=== PATIENT | female | born 1950 | race Caucasian/White ===

== ENCOUNTER 2019-05-26 16:28 | Inpatient (IN) | payer MEDICARE, MEDICAID, SELFPAY ==
[2019-05-26] VITALS (26 sets, daily range): BP systolic 95–212; BP diastolic 52–197; PULSE 72–87; RESP 0–32; TEMP 36.8; O2SAT 50–100; BMI 61.1
--- NOTE | ~2019-05-26 | XR_ITS ---
EXAMINATION: XR chest 1V portable DATE: 05/27/2019 08:17 INDICATION: Acute on chronic hypercapnic respiratory failure. TECHNIQUE: frontal view of the chest was obtained. COMPARISON: Chest radiograph dated 05/26/2019 FINDINGS: Increasing opacities in the right infrahilar region as well as the left lower lung zone with new blun ting at the left costophrenic angle. No pneumothorax. Calcified nodule in the left lung consistent wi th old granulomatous disease. Radio megaly. Enlargement of the central pulmonary arteries consistent with pulmonary arterial hypertension. Dual lead pacemaker seen with leads projecting over the expecte d locations of the right atrium and right ventricle. IMPRESSION: 1. Increasing opacities in the right infrahilar region and left lower lung zone which could represent pulmonary edema, atelectasis, pneumonia or some combination of. 2. Small left pleural effusion. 3. Cardiomegaly and enlargement of the central pulmonary arteries which can be seen with pulmonary ar terial hypertension. Reviewed, dictated and finalized at location A. OR ACCOUNTING SPECIALIST IMPRESSION: 1. Increasing opacities in the right infrahilar region and left lower lung zone which could represent pulmonary edema, atelectasis, pneumonia or some combinat ion of. 2. Small left pleural effusion. 3. Cardiomegaly and enlargement of the central pulmonary arteries which can be seen with pulmonary arterial hypertension.
--- NOTE | ~2019-05-26 | XR_ITS ---
EXAMINATION: XR chest 1V portable EXAM DATE: 05/26/2019 18:27 INDICATION: Shortness of breath. TECHNIQUE: Portable AP frontal chest x-ray was obtained. Comparison is made to prior examination from 05/07/2019. FINDINGS: Again there is cardiomegaly and pulmonary vascular congestion. There is a dual lead pacemak er/AICD seen with leads projecting over the expected locations of the right atrial appendage and righ t ventricle. Several granulomas. No confluent consolidation, pneumothorax or pleural effusion suspect ed. There is aortic arterial sclerosis. There are bony degenerative changes. IMPRESSION: Cardiomegaly, congestion unchanged. Reviewed, dictated and finalized at location A. SSMENT NURSE PRACTITIONER
--- NOTE | ~2019-05-26 | US_ITS ---
EXAMINATION: US renal BI DATE: 05/27/2019 08:43 INDICATION: Acute on chronic renal failure TECHNIQUE: Multiple grayscale and Doppler ultrasound images of the kidneys were obtained. COMPARISON: None. FINDINGS: The examination is limited by the patient's body habitus. The right kidney measures 9.0 x 5.1 x 5.4 cm. A 1.5 cm hypoechoic lesion projects from the lower pole of the kidney which does not d emonstrate internal vascularity. The left kidney measures 9.4 x 5.7 x 5.2 cm. The kidneys demonstrate normal parenchymal echogenicity. There is no hydronephrosis. The bladder is decompressed by [place] ca theter. IMPRESSION: 1. Grossly no acute abnormality of the kidneys, however examination is significantly limited. 2. Hypoechoic, exophytic lesion of the right kidney lower pole, likely a cyst. Reviewed, dictated and finalized at location A. CH FOLDER IMPRESSION: 1. Grossly no acute abnormality of the kidneys, however examination is signifi cantly limited. 2. Hypoechoic, exophytic lesion of the right kidney lower pole, likely a cyst.
--- NOTE | 2019-05-26 16:38 | ECG_ITS ---
Measurements Intervals [place] Rate: 80 P: -58 KS: 317 QRS: -32 QRSD: 170 T: 159 QT: 466 QTc: 538 Interpretive Statements ELECTRONIC ATRIAL PACEMAKER ELECTRONIC VENTRICULAR PACEMAKER BASELINE ARTIFACT- I, II, III, AVR, AVL, AVF, V1-V6 NO FURTHER INTERPRETATION IS POSSIBLE ATYPICAL ECG Electronically Signed On 05-26-2019 20:21:41 MICROELECTRONICS ASSEMBLER by Vicente Kendall D.O.
--- NOTE | 2019-05-26 16:45 | PC.NURSE ---
PT NOTED TO HAVE RA SATURATION IN THE 50'S, PHYSICIANS DESK NOTIFIED AND DANN RUIZ AT BEDSIDE, RN INFORMED PA THAT PT HAS SIG HX OF COPD, PA ORDER TO PLACE PT ON NON-REBREATHER AT 15 L, AND STATES SHE WILL ORDER A STAT BREATHING TREATMENT. ED RESPIRATORY INFORMED. PT STILL DENIES BEING SOB, O2 SATURATION COMING UP ON NON-REBREATHER AT 99%.
[2019-05-26] MEDS: ALBUTEROL SULFATE NEB 2.5 MG/0.5 ML INH 15 MG INHALATION (17:19)
[2019-05-26] MEDS: IPRATROPIUM BR 0.02% INH SOLN 0.5 MG/2.5 ML VIAL 1.5 MG INHALATION (17:19)
--- NOTE | 2019-05-26 17:19 | ED.WEAKNESS ---
HPI - Weakness General Chief complaint: Weakness Stated complaint: weakness Time Seen by Provider: 05/26/19 16:51 Source: patient Mode of arrival: EMS Limitations: dementia History of Present Illness HPI Narrative: This is a 68 year old female that presents to the ER for weakness x 2 days. Per patient's family member she has been more weak over the last couple days. Reports acute worsening this morning. Reports she was unable to walk today, which prompted family member to call an ambulance. Reports she lives at home with her sister. Reports she has a history of COPD, CHF and CKD. Patient currently has no other localizing symptoms. Denies fever, chest pain, shortness of breath, abdominal pain, vomiting, or dysuria. Related Data Home Medications Medication Instructions Recorded Confirmed apixaban 5 mg tablet 5 mg PO BID 03/30/19 05/07/19 cholecalciferol (vitamin D3) 2,000 2,000 unit PO DAILY 03/30/19 05/07/19 unit tablet ferrous sulfate 142 mg (45 mg 142 mg PO BID 03/30/19 05/07/19 iron) tablet,extended release memantine 10 mg tablet 10 mg PO BID 03/30/19 05/07/19 ranitidine HCl 150 mg tablet 150 mg PO BID tablet 03/30/19 05/07/19 sotalol 80 mg tablet 80 mg PO BID tablet 03/30/19 05/07/19 acetaminophen 650 mg PO Q6H PRN 05/07/19 05/07/19 Allergies Allergy/AdvReac Type Severity Reaction Status Date / Time No Known Allergies Allergy Unverified 03/30/19 14:33 Review of Systems Review of Systems: Narrative: Limited due to history of dementia: CONSTITUTIONAL: Denies fever ENT: Denies rhinorrhea, congestion CARDIOVASCULAR: Denies chest pain RESPIRATORY: Denies cough or dyspnea. GASTROINTESTINAL: Denies abdominal pain, vomiting GENITOURINARY: Denies dysuria NEUROLOGIC: Reports weakness All systems reviewed & are unremarkable except as noted in HPI and below PMFSH Past Medical History Medical History (Updated 05/26/19 @ 21:01 by Nikkie Rivera PA-C) Atrial fibrillation Cardiac arrhythmia CHF (congestive heart failure) COPD (chronic obstructive pulmonary disease) Dementia Gallbladder disorder GERD (gastroesophageal reflux disease) Heart disease Hernia Kidney disease Low serum vitamin D Pacemaker Stasis dermatitis Venous insufficiency Surgical History Surgical History History of appendectomy History of cholecystectomy History of hernia repair x 2 Family History Family History (Updated 05/07/19 @ 21:46 by Mona Doshi NP) Mother Pancreatic cancer Father Cerebrovascular accident Acute myocardial infarction Malignant neoplasm of prostate Grandparent No problems noted. Grandparent No problems noted. Sibling Diabetes mellitus Social History Social History (Updated 05/07/19 @ 21:47 by Mona Doshi NP) Social History: Patient is currently from her . her sister destinee is her POA. she wants to be a full code. She does have 1 son and 1 daughter. She quit smoking 30 years ago having smoked 2 packs per day from age 12 until her 40s. No alcohol use. Smoking packs per day: 2 Smoking cigarettes per day: 40.0 Years smoked: 30 Smoking pack-years: 60.00 Smoking status: Former smoker Tobacco type: cigarettes Alcohol intake: never Substance use: never Substance use type: does not use Additional living arrangements comments: Her sister destinee Additional occupation/education comments: The patient was fired from her job but was too sick to return. Gender identity (if verbalized by the patient): Female Spiritual care concerns: No Agree to blood products: Yes Exam Narrative: Exam Narrative: GENERAL: Elderly, obese, and in no acute distress. HEAD: Normocephalic, atraumatic. EYES: PERRLA and EOMI. ENT: Nares clear, no rhinorrhea or epistaxis. Mucous membranes moist. Oropharynx without tonsillar hypertrophy exudate or other le
[2019-05-26 17:26] LABS: Base Excess ABG 21.8 mEq/l (+/-2.0); Carboxyhemoglobin 0.9 % THb (0-2.0); Fractional Inspired Oxygen 100 %; Methemoglobin ABG 0.3 %THb (0-1.5); Oxygen Content ABG 17.7 %vol (16.0-22.0); Oxygen Saturation ABG 99.6 % (95.0-100.0); PO2 ABG 354.2 mmHg (80.0-100.0); PO2 FiO2 Ratio Arterial Blood 3.54 %; Reduced Hemoglobin 0.8 %THb (0-5.0); Total Hemoglobin 12.2 g/dL (12.0-18.0)
[2019-05-26 17:29] LABS: Device NON-REBREATHER MASK; PCO2 ABG 130.8 mmHg (35.0-45.0); Site Drawn LEFT BRACHIAL; pH ABG 7.242 (7.350-7.450)
[2019-05-26 17:36] LABS: Basophils Percent Auto 0.3 % (0.2-1.2); Eosinophils Absolute Auto 0.1 K/mm3 (0-0.3); Eosinophils Percent Auto 1.2 % (0-4.4); Hematocrit 38.3 % (37.0-47.0); Hemoglobin 11.4 g/dL (12.0-15.0); Immature Granulocyte Absolute 0.01 K/mm3 (0.00-0.031); Immature Granulocyte Percent A 0.2 % (0-0.5); Lymphocytes Percent Auto 11.8 % (18.3-44.2); Mean Corpuscular HGB Conc 29.8 g/dl (32-36); Mean Corpuscular Hemoglobin 29.7 pg (26-34); Mean Corpuscular Volume 99.7 fl (80-100); Monocytes Absolute Auto 0.5 K/mm3 (0.1-0.6); Monocytes Percent Auto 9.1 % (2.6-8.5); Neutrophils Absolute Auto 4.6 K/mm3 (1.3-6.7); Neutrophils Percent Auto 77.4 % (45.5-73.1); Platelet Count Result 169 k/mm3 (150-375); Red Blood Count 3.84 M/mm3 (4.2-5.4); White Blood Count 5.9 K/mm3 (4.5-10.0)
[2019-05-26 17:40] LABS: Add Urine Microscopic? YES; Appearance Urine Cloudy (Clear); Bacteria Urine Trace /hpf; Bilirubin Urine Negative (Negative); Blood Urine 1+ (Negative); Color Urine Yellow (Yellow); Glucose Urine UA 1+ mg/dL (Negative); Hyaline Casts Urine 30-49 /lpf; Ketones Urine Negative (Negative); Leukocyte Esterase Ur Negative LEU/UL (Negative); Mucus Urine Rare /lpf; Nitrate Urine Negative (Negative); Protein Urine 1+ mg/dL (Negative); RBC Urine 0-2 /hpf (0-2); Specific Grav Ur 1.014 (1.001-1.035); Squamous Epithelial Cell Urine Few /hpf (Few); Urobilinogen Urine Negative mg/dL (<2.0)
[2019-05-26 17:46] LABS: Prothrombin Time 12.8 Seconds (11.1-14.7)
[2019-05-26 17:47] LABS: Partial Thromboplastin Time 27.5 SECONDS (22.3-36.8); Platelet Estimate Adequate (Adequate)
[2019-05-26 17:48] LABS: Hypochromasia 1+ (NORMAL); Stomatocytes 1+ (NORMAL)
[2019-05-26 17:51] LABS: Lactic Acid Reflex 0.7 mmol/L (0.7-2.1)
[2019-05-26 17:54] LABS: Alanine Aminotransferase 26 U/L (4-35); Albumin Level 3.7 g/dL (3.5-5.1); Alkaline Phosphatase 73 U/L (38-126); Aspartate Amino Transferase 33 U/L (14-36); Bilirubin,Total 0.5 mg/dL (0.2-1.3); Blood Urea Nitrogen 59 mg/dL (7-17); Calcium 8.5 mg/dL (8.4-10.2); Carbon Dioxide > 40 mmol/L (22-30); Chloride 76 mmol/L (98-107); Estimated CRCL calculation 16 ml/min; Estimated Glomerular Filt Rate 11; Glucose 98 mg/dL (65-105); Potassium 3.9 mmol/L (3.4-5.0); Sodium 132 mmol/L (137-145)
[2019-05-26 17:57] LABS: CRP 0.6 mg/dL (<1.0)
[2019-05-26] MEDS: SODIUM CHLORIDE 0.9% IV 500 ML 999 ML IV CONT (17:58)
[2019-05-26] MEDS: methylPREDNISolone SOD SUCC 125 MG VIAL IV PUSH (17:58)
[2019-05-26 18:01] LABS: NT Pro B Type Natriuretic Pept 6390 PG/ML (5-100)
[2019-05-26 18:09] LABS: Troponin I 0.046 ng/mL (0.000-0.034)
--- NOTE | 2019-05-26 20:06 | PC.NURSE ---
talked with jaime Pal and gave update.
--- NOTE | 2019-05-26 20:27 | PC.NURSE ---
Obtained manual BP. AMANDA 98/52. PA notified
[2019-05-26] MEDS: SODIUM CHLORIDE 0.9% IV 500 ML IV CONT (20:37)
--- NOTE | 2019-05-26 20:37 | PC.NURSE ---
report has been called awaiting respiratory for transport
[2019-05-26 20:49] LABS: Troponin I 0.047 ng/mL (0.000-0.034)
--- NOTE | 2019-05-26 21:26 | ADMGEN ---
This patient, Janki Callejas, was admitted to Intensive Care Unit-6. Patient/family oriented to hospital policies and general routines including ID bracelet, bed and alarms, visiting hours, pain management, procedures, bathroom and other care routines, personal items, smoking policy, room service/diet, and visiting hours. Valuables list has been completed. Information on how to activate the Rapid Response Team has been discussed. Patient/Family are encouraged to report perceived risks to care and to ask questions if they do not understand what they are told or what they should do. This patient, Janki Callejas, was admitted to Intensive Care Unit-6. Patient/family oriented to hospital policies and general routines including ID bracelet, bed and alarms, visiting hours, pain management, procedures, bathroom and other care routines, personal items, smoking policy, room service/diet, and visiting hours. Valuables list has been completed. Information on how to activate the Rapid Response Team has been discussed. Patient/Family are encouraged to report perceived risks to care and to ask questions if they do not understand what they are told or what the Pt on continous bipaa
--- NOTE | 2019-05-26 22:12 | PM.IMHP ---
H&P: HPI History of Present Illness Chief complaint: acute respiratory failure Narrative: Janki Callejas is a 68 year old female who lives with her sister Caleb who has her durable power title attorney. This patient is well-known to me as I admitted her earlier this month the patient was admitted here on 05/07/2019 for exacerbation of CHF and COPD. The patient had been on the BiPAP at that time as well. She was a full code at that time but then decided to become a modified code with no intubation. The patient was discharged on 05/11/2019 patient had acute respiratory failure at that time. She is on home oxygen but does not wear it on a regular basis. Patient had been tapered off of steroids. Patient has chronic renal failure stage 4. Today the patient was very the patient was very lethargic and weak. Her sister's attempted to get her up out of bed and they were unable to get her out of bed. She typically uses a walker and gets up and moves around. Today she became even more confused although she has a history dementia. Patient was given Solu-Medrol and IV fluids. IV bolus was stopped when the patient came to ICU. At 1 time her lowest blood pressure was 95/54 and that is why she got the bolus. Also her creatinine went up to 4.0 with a baseline of around 1.9 to 2.0. Nephrology was consulted. Service Station Operator was consulted. Patient was placed on a BiPAP. Settings are now 20/6. Her last blood gases pH 7.242 and pCO2 was 130.8 with PO2 of 354.2. Patient was admitted to the intensive care unit with acute on chronic respiratory failure with hypoxia and hypercapnia. Exacerbation of COPD. Date of service 05/26/2019. Review of Systems Review of Systems: Narrative: The patient woke up and started talking while I was doing this dictation. All systems reviewed & are unremarkable except as noted in HPI and below ROS unobtainable: unobtainable due to mental status and other (Patient is currently on the BiPAP) Constitutional: Constitutional: Reports as per HPI and Reports no additional constitutional complaints Eyes: Eyes: Reports as per HPI and Reports no additional eye complaints ENT: Reports system reviewed and no additional complaints, except as documented and Reports Normal hearing present Cardiovascular: Cardiovascular: Reports no additional cardiovascular complaints Respiratory: Respiratory: Reports no additional respiratory complaints and Reports no additional respiratory complaints Gastrointestinal: Gastrointestinal: Reports as per HPI and Reports no additional gastrointestinal complaints Musculoskeletal: Musculoskeletal: Reports no additional musculoskeletal complaints Integumentary/Breasts: Skin/Breast: Reports system reviewed and no additional complaints, except as docu and Reports as per HPI Neurologic: Reports system reviewed and no additional complaints, except as documented, Reports as per HPI and Reports Normal hearing present Psychiatric: Psychiatric: Reports no additional psychiatric complaints and Reports as per HPI Endocrine: Endocrine: Reports no additional endocrine complaints Hematologic/Lymphatic: Hematologic/Lymphatic: Reports no additional hematologic/lymphatic complaints Allergic/Immunologic: Allergic/Immunologic: Reports no additional allergic/immunologic complaints [facility] Past Medical History Medical History Atrial fibrillation Cardiac arrhythmia CHF (congestive heart failure) COPD (chronic obstructive pulmonary disease) Dementia Gallbladder disorder GERD (gastroesophageal reflux disease) Heart disease Hernia Kidney disease Low serum vitamin D Pacemaker Stasis dermatitis Venous insufficiency Surgical History Surgical History History of appendectomy History of cholecystectomy History of hernia repair x 2 Family History Family History Mother
[2019-05-26 22:17] LABS: Alveolar/Arterial O2 Gradient 92.7 mmHg; Base Excess ABG 13.4 mEq/l (+/-2.0); Fractional Inspired Oxygen 40 %; HCO3 ABG 44.4 mEq/l (22.0-26.0); Oxygen Content ABG 16.4 %vol (16.0-22.0); Oxyhemoglobin 93.8 % THb (90.0-100.0); PO2 ABG 78.9 mmHg (80.0-100.0); PO2 FiO2 Ratio Arterial Blood 1.97 %; Total Hemoglobin 12.4 g/dL (12.0-18.0)
[2019-05-26 22:20] LABS: Device NON-INVASIVE VENT; Modified Allen's Test Unable to perform; PCO2 ABG 98.8 mmHg (35.0-45.0); Site Drawn LEFT RADIAL
[2019-05-26 22:21] LABS: Non-Invasive Expiratory Pressure 6 CMH2O; Non-Invasive Inspiratory Pressure 20 CMH2O; Non-Invasive Vent Rate 20 /MIN
[2019-05-26] MEDS: SODIUM CHLORIDE 0.9% IV 1,000 ML 100 ML IV CONT (23:42)
[2019-05-26] MEDS: methylPREDNISolone SOD SUCC 125 MG VIAL 80 MG IV PUSH (23:43)
[2019-05-26] MEDS: MEMANTINE 10 MG TABLET PO (23:43)
[2019-05-26] MEDS: levETIRAcetam 250 MG TABLET PO (23:43)
[2019-05-26] MEDS: APIXABAN 5 MG TABLET PO (23:43)
[2019-05-27] VITALS (22 sets, daily range): BP systolic 96–156; BP diastolic 51–99; PULSE 18–87; RESP 15–25; TEMP 36.1–37.1; O2SAT 94–98
--- NOTE | 2019-05-27 | ECHO_ITS ---
Patient Info Name: Janki Callejas Age: 68 years : 1950 Gender: Female Ht: 60 in Wt: 317 lbs BSA: 2.57 m2 HR: 80 bpm BP: 132 / 92 mmHg Heart Rhythm: Paced Technical Quality: Fair, Other Exam Date: 05/27/2019 1:48 PM Exam Location: [facility] Pulmonary Patient Status: Inpatient Admit Date: 05/26/2019 Staff Ordering Physician: Rubi Cameron MD Extrusion Machine Operator: Loraine Callahan RDCS Attending Provider: Austin Camp MD Exam Type: CA echo dop color flow w con Study Info Indications - hx/o chf eval cardiac function Complete two-dimensional, color flow and Doppler transthoracic echocardiogram is performed with contrast to opacify the left ventricle and to improve the deliniation of the left ventricle endocardial borders. Contrast/Agitated Saline Contrast/Ag. Saline: Definity Amount: 1.00 ml Administered By: Roopa Boyer RN Existing IV Access: Yes IV Access Condition: patent with no signs of infiltration Summary 1. Left ventricular systolic function is normal, estimated at 65-70%. 2. There is mildly increased left ventricular wall thickness. 3. The left ventricular diastolic function is abnormal. 4. Linear artifact in right ventricle suggestive of catheter(s), pacemaker lead(s), or ICD lead(s). 5. Left atrial chamber dimension is mildly enlarged. 6. Right atrial chamber dimension is mildly enlarged. 7. There is no aortic valve stenosis. 8. There is mild mitral valve regurgitation. 9. Mild mitral annular calcification. 10. There is mild tricuspid valve regurgitation. 11. Mild pulmonary hypertension, estimated pulmonary arterial systolic pressure is 38 mmHg. 12. Normal inferior vena cava with <50% collapse upon inspiration consistent with elevated right atrial pressure, 10 mmHg. 13. Paradoxical septal wall motion abnormality secondary to RV paced rhythm. Left Ventricle Left ventricular chamber dimension is normal. Left ventricular systolic function is normal, estimated at 65-70%. There is mildly increased left ventricular wall thickness. The left ventricular diastolic function is abnormal. Paradoxical septal wall motion abnormality secondary to RV paced rhythm. Right Ventricle Right ventricular chamber dimension is normal. Right ventricular systolic function is normal. Linear artifact in right ventricle suggestive of catheter(s), pacemaker lead(s), or ICD lead(s). Left Atria Left atrial chamber dimension is mildly enlarged. Right Atria Right atrial chamber dimension is mildly enlarged. Linear artifact in the right atrium suggestive of catheter(s), pacemaker lead(s), or ICD lead(s). Aortic Valve The aortic valve is trileaflet. There is mild aortic valve sclerosis. There is no aortic valve stenosis. There is no aortic valve regurgitation. Pulmonic Valve The pulmonic valve is not well visualized. Mitral Valve The mitral valve has normal leaflets. There is mild mitral valve regurgitation. Mild mitral annular calcification. Tricuspid Valve The tricuspid valve leaflets are normal. There is mild tricuspid valve regurgitation. Mild pulmonary hypertension, estimated pulmonary arterial systolic pressure is 38 mmHg. Pericardium/Pleural The pericardium appears normal. There is trivial pericardial effusion. Inferior Vena Cava Normal inferior vena cava with <50% collapse upon inspiration consistent with elevated right atrial pressure, 10 mmHg. Aorta The aortic root size a
[2019-05-27] MEDS: ALBUTEROL SULFATE NEB 2.5 MG/0.5 ML INH INHALATION (02:29)
[2019-05-27] MEDS: IPRATROPIUM BR 0.02% INH SOLN 0.5 MG/2.5 ML VIAL INHALATION ×3 (02:29→14:35)
[2019-05-27 04:42] LABS: Hematocrit 35.2 % (37.0-47.0); Hemoglobin 10.8 g/dL (12.0-15.0); Immature Granulocyte Absolute 0.01 K/mm3 (0.00-0.031); Immature Granulocyte Percent A 0.3 % (0-0.5); Lymphocytes Absolute Auto 0.33 K/mm3 (0.9-3.2); Lymphocytes Percent Auto 8.6 % (18.3-44.2); Mean Corpuscular HGB Conc 30.7 g/dl (32-36); Mean Corpuscular Hemoglobin 29.6 pg (26-34); Mean Corpuscular Volume 96.4 fl (80-100); Mean Platelet Volume 8.9 fl (7.4-10.4); Monocytes Absolute Auto 0.1 K/mm3 (0.1-0.6); Monocytes Percent Auto 1.6 % (2.6-8.5); Neutrophils Absolute Auto 3.4 K/mm3 (1.3-6.7); Neutrophils Percent Auto 89.5 % (45.5-73.1); Platelet Count Result 144 k/mm3 (150-375); Red Blood Count 3.65 M/mm3 (4.2-5.4); Red Cell Distribution Width 14.4 % (11.5-14.5); White Blood Count 3.8 K/mm3 (4.5-10.0)
[2019-05-27 04:59] LABS: Alveolar/Arterial O2 Gradient 130.6 mmHg; Base Excess ABG 10.3 mEq/l (+/-2.0); Carboxyhemoglobin 0.4 % THb (0-2.0); Fractional Inspired Oxygen 40 %; HCO3 ABG 38.2 mEq/l (22.0-26.0); Methemoglobin ABG 0.3 %THb (0-1.5); Oxygen Content ABG 15.7 %vol (16.0-22.0); Oxygen Saturation ABG 93.8 % (95.0-100.0); Oxyhemoglobin 93.7 % THb (90.0-100.0); PO2 ABG 74.4 mmHg (80.0-100.0); PO2 FiO2 Ratio Arterial Blood 1.86 %; Reduced Hemoglobin 5.6 %THb (0-5.0); Total Hemoglobin 11.9 g/dL (12.0-18.0); pH ABG 7.357 (7.350-7.450)
[2019-05-27 05:00] LABS: Alanine Aminotransferase 24 U/L (4-35); Albumin Level 3.3 g/dL (3.5-5.1); Alkaline Phosphatase 50 U/L (38-126); Aspartate Amino Transferase 33 U/L (14-36); Bilirubin,Total 0.5 mg/dL (0.2-1.3); Blood Urea Nitrogen 62 mg/dL (7-17); Carbon Dioxide > 40 mmol/L (22-30); Chloride 80 mmol/L (98-107); Estimated CRCL calculation 18 ml/min; Estimated Glomerular Filt Rate 13; Glucose 122 mg/dL (65-105); Magnesium 3.5 mg/dL (1.6-2.3); Potassium 4.8 mmol/L (3.4-5.0); Sodium 134 mmol/L (137-145)
[2019-05-27 05:06] LABS: Device NON-INVASIVE VENT; PCO2 ABG 69.7 mmHg (35.0-45.0); Site Drawn LEFT BRACHIAL
[2019-05-27 05:07] LABS: Non-Invasive Expiratory Pressure 6 CMH2O; Non-Invasive Inspiratory Pressure 20 CMH2O; Non-Invasive Vent Rate 20 /MIN
[2019-05-27] MEDS: methylPREDNISolone SOD SUCC 125 MG VIAL 80 MG IV PUSH ×3 (05:18→18:09)
[2019-05-27 06:18] LABS: Thyroid Stimulating Hormone Reflex 0.251 uIU/mL (0.465-4.68)
[2019-05-27 07:38] LABS: Troponin I 0.041 ng/mL (0.000-0.034)
[2019-05-27 08:14] LABS: Free T4 Free Thyroxine Reflex 1.37 ng/dL (0.78-2.19)
[2019-05-27] MEDS: SODIUM CHLORIDE 0.9% IV 1,000 ML 100 ML IV CONT ×2 (08:25→15:05)
[2019-05-27] MEDS: APIXABAN 5 MG TABLET PO ×2 (08:25→16:55)
[2019-05-27] MEDS: levETIRAcetam 250 MG TABLET PO (08:25)
[2019-05-27] MEDS: MEMANTINE 10 MG TABLET PO ×2 (08:25→16:55)
[2019-05-27] MEDS: TOLNAFTATE 1% POWDER 45 GM BTL 1 APPLIC TOPICAL ×2 (08:25→23:00)
--- NOTE | 2019-05-27 08:27 | PM.CNNEP ---
Assessment and Plan Assessment and plan (1) Acute on chronic kidney failure: Qualifiers: Acute renal failure type: unspecified Chronic kidney disease stage: stage 4 (severe) Qualified Code(s): N17.9 - Acute kidney failure, unspecified; N18.4 - Chronic kidney disease, stage 4 (severe) Code(s): N17.9 - Acute kidney failure, unspecified; N18.9 - Chronic kidney disease, unspecified Status: Acute Assessment and Plan: This patient has chronic kidney disease. This is most likely due to hypertension, vascular disease, and chronic pre renal azotemia. Her baseline creatinine seems to be around 2. She has superimposed acute kidney injury. Her urine electrolytes show a very low urine sodium. This may be from pre renal azotemia from the cardiomyopathy but also from diuretics. It is unlikely that she would have obstruction, glomerulonephritis, interstitial nephritis, etc as the clinical scenario does not fit. We will check a renal ultrasound, urine eosinophils, and follow the clinical course. Since the patient does not want dialysis, there is not much more we can do. She does not want to be intubated either. We discussed at length how she is walking the fine line between volume overload and renal failure however currently she has both. If she does not want to do dialysis then there is probably nothing else to do. Even if we did do dialysis, because of her poor condition, cardiomyopathy, COPD, and other comorbidities, her survival on dialysis would probably be very short. The patient and the family wished to have discussions with hospice. I talked with the soft sugar supervisor about this. (2) Acute respiratory failure: Qualifiers: Respiratory failure complication: hypoxia and hypercapnia Qualified Code(s): J96.01 - Acute respiratory failure with hypoxia; J96.02 - Acute respiratory failure with hypercapnia Code(s): J96.00 - Acute respiratory failure, unspecified whether with hypoxia or hypercapnia Status: Acute Assessment and Plan: The patient is getting BiPAP and oxygen bleed in now. (3) COPD (chronic obstructive pulmonary disease): Qualifiers: COPD type: unspecified COPD Qualified Code(s): J44.9 - Chronic obstructive pulmonary disease, unspecified Code(s): J44.9 - Chronic obstructive pulmonary disease, unspecified Status: Chronic Assessment and Plan: She is getting supportive care (4) Dementia: Code(s): F03.90 - Unspecified dementia without behavioral disturbance Status: Chronic Assessment and Plan: Her sister was in the room when were having the above discussions. (5) Sleep apnea: Qualifiers: Sleep apnea type: obstructive Qualified Code(s): G47.33 - Obstructive sleep apnea (adult) (pediatric) Code(s): G47.30 - Sleep apnea, unspecified Status: Acute Assessment and Plan: She is on BiPAP (6) CHF (congestive heart failure): Qualifiers: Heart failure chronicity: chronic Heart failure type: unspecified Qualified Code(s): I50.9 - Heart failure, unspecified Code(s): I50.9 - Heart failure, unspecified Status: Chronic History of Present Illness Reason for Consult Consult date: 05/27/19 Chief Complaint Chief complaint: acute respiratory failure History of Present Illness Narrative: Aissatou is a very pleasant 68-year-old lady who has multiple medical problems including COPD, congestive heart failure, chronic kidney disease, chronic volume overload, anemia, depression, dementia, who is been in an out of the hospital frequently with fluid overload. She is on diuretics at home. She gets adjustment of her diuretics at home when needed for fluid overload. She was just in the hospital earlier this month because of volume overload. At 1 point she did have a discussion with the doctors and decided that she did not want to be intubated. Upon discharge she was feeling a little bit better but
[2019-05-27] MEDS: SODIUM CHLORIDE 0.9% IV 500 ML IV CONT (08:56)
[2019-05-27 09:19] LABS: Total Triiodothyronine (T3) 0.61 NG/ML (0.97-1.69)
[2019-05-27] MEDS: ALBUTEROL SULFATE NEB 2.5 MG/0.5 ML INH 5 MG INHALATION ×2 (09:56→14:35)
--- NOTE | 2019-05-27 12:54 | WPDCNINT ---
Assessment and Plan Assessment and plan (1) Acute respiratory failure: Qualifiers: Respiratory failure complication: hypoxia and hypercapnia Qualified Code(s): J96.01 - Acute respiratory failure with hypoxia; J96.02 - Acute respiratory failure with hypercapnia Code(s): J96.00 - Acute respiratory failure, unspecified whether with hypoxia or hypercapnia Status: Acute Assessment and Plan: patient with acute on chronic hypercapnic respiratory failure, presented with lethargy, weakness, encephalopathy likely related to hypercapnic respiratory failure, initial pCO2 levels on ABGs was 130. - Patient placed on BiPAP with improvement in the pCO2 levels as along with pH. Patient has a history of COPD, work apneic respiratory failure, her normal pCO2 levels are in the 60s - continue bronchodilators, steroids and antibiotics - BiPAP during the night and during the day as needed (2) Acute on chronic kidney failure: Qualifiers: Acute renal failure type: unspecified Chronic kidney disease stage: stage 4 (severe) Qualified Code(s): N17.9 - Acute kidney failure, unspecified; N18.4 - Chronic kidney disease, stage 4 (severe) Code(s): N17.9 - Acute kidney failure, unspecified; N18.9 - Chronic kidney disease, unspecified Status: Acute Assessment and Plan: acute on chronic kidney disease likely related to diuretics, hypovolemia as patient has had decreased p.o. intake - patient was hydrated, creatinine trending down - continue to monitor urine output, renal function electrolytes - appreciate Nephrology evaluation and recommendation - renal ultrasound on 05/26/2019 showed grossly no acute abnormalities of the kidneys, Hypoechoic, exophytic lesion of the right kidney lower pole, likely a cyst. (3) Atrial fibrillation: Qualifiers: Atrial fibrillation type: unspecified Qualified Code(s): I48.91 - Unspecified atrial fibrillation Code(s): I48.91 - Unspecified atrial fibrillation Status: Chronic Assessment and Plan: patient with history of atrial fibrillation, has a pacemaker - continue Eliquis which she takes at home (4) Acute exacerbation of chronic obstructive airways disease: Code(s): J44.1 - Chronic obstructive pulmonary disease with (acute) exacerbation Status: Acute Assessment and Plan: continue bronchodilators, steroids an (5) CHF (congestive heart failure): Qualifiers: Heart failure chronicity: chronic Heart failure type: unspecified Qualified Code(s): I50.9 - Heart failure, unspecified Code(s): I50.9 - Heart failure, unspecified Status: Chronic Assessment and Plan: seems compensated at this time (6) DVT prophylaxis: Code(s): Z29.9 - Encounter for prophylactic measures, unspecified Status: Acute Assessment and Plan: Abner Additional Plan discussed with patient and her sister and updated them with patient's condition and plan of care. Dr. Bernabe discussed with the patient and the sister regarding hospice to which they were agreeable. I also briefly touched the topic of hospice and patient would like to meet with hospice team. Will have care coordination arrange for hospice team to meet with the patient and her family. Code status: no intubation critical care time spent; 44 minutes Due to a high probability of clinically significant, life threatening deterioration, the patient required my highest level of preparedness to intervene emergently and I personally spent this critical care time directly and personally managing the patient. This critical care time included obtaining a history; examining the patient; pulse oximetry; ordering and review of studies; arranging urgent treatment with development of a management plan; evaluation of patient's response to treatment; frequent reassessment; and discussions with other providers. It was exclusive of separately billabl
--- NOTE | 2019-05-27 13:52 | PM.IMPN ---
Progress Note: A&P Assessment and Plan (1) Acute respiratory failure: Qualifiers: Respiratory failure complication: hypoxia and hypercapnia Qualified Code(s): J96.01 - Acute respiratory failure with hypoxia; J96.02 - Acute respiratory failure with hypercapnia Code(s): J96.00 - Acute respiratory failure, unspecified whether with hypoxia or hypercapnia Status: Acute Assessment and Plan: 05/27/19 13:52 patient is 68-year-old female with history of chronic respiratory failure atrial fibrillation systolic dysfunction with a defibrillator patient had been weak lethargic and somnolent 2-3 days prior to coming to emergency depart, her family was not able to awaken her patient was brought to the emergency department was found to be in respiratory failure with hypercapnia her CO2 level post 130 patient was placed on BiPAP and responded well patient also has history of stage 4 chronic kidney disease, currently patient on BiPAP patient and her family have decided to consider hospice care (2) Acute on chronic kidney failure: Qualifiers: Acute renal failure type: unspecified Chronic kidney disease stage: stage 4 (severe) Qualified Code(s): N17.9 - Acute kidney failure, unspecified; N18.4 - Chronic kidney disease, stage 4 (severe) Code(s): N17.9 - Acute kidney failure, unspecified; N18.9 - Chronic kidney disease, unspecified Status: Acute Assessment and Plan: Patient seen by Dr. Bernabe plan is above (3) CHF exacerbation: Qualifiers: Heart failure type: diastolic Qualified Code(s): I50.33 - Acute on chronic diastolic (congestive) heart failure Code(s): I50.9 - Heart failure, unspecified Status: Acute Assessment and Plan: Patient with history of severe systolic dysfunction now in exacerbation (4) Elevated troponin: Code(s): R79.89 - Other specified abnormal findings of blood chemistry Status: Acute Assessment and Plan: Patient with mildly elevated tropes most likely demand ischemia secondary to acute respiratory failure and exacerbation of CHF unlikely acute coronary syndrome Subjective Date/time seen: 05/27/19 13:52 patient is 68-year-old female with history of chronic respiratory failure atrial fibrillation systolic dysfunction with a defibrillator patient had been weak lethargic and somnolent 2-3 days prior to coming to emergency depart, her family was not able to awaken her patient was brought to the emergency department was found to be in respiratory failure with hypercapnia her CO2 level post 130 patient was placed on BiPAP and responded well patient also has history of stage 4 chronic kidney disease, currently patient on BiPAP patient and her family have decided to consider hospice care Review of Systems Review of Systems: ROS unobtainable: unobtainable due to mental condition Exam Narrative: Exam Narrative: Morbidly obese on BiPAP Const: General: comfortable and no acute distress HENMT: General nose exam: Normal nares present Mouth: Yes moist mucous membranes Eyes: General: appearance normal, both eyes and all related structures Sclera: sclerae normal Neck: Neck: supple Resp: Other: Bilateral poor air entry with harsh breath sounds Cardio: Other: Irregularly irregular GI: Auscultation: normal bowel sounds Other: Morbidly obese Skin: General skin exam: normal color and no rashes or lesions noted Neuro: Speech: normal speech Sensory Exam: normal sensation Extrem: General: normal to inspection Psych: Affect: Anxious affect present Objective Data Vital Signs Vital Signs: Vital Signs - 24 hr 05/26/19 16:27 05/26/19 16:34 05/26/19 16:35 Temperature 98.2 F Pulse Rate 72 Respiratory Rate 18 0 L Blood Pressure 99/61 L 159/145 H Pulse Oximetry 50 L 59 L 05/26/19 16:37 05/26/19 16:38 05/26/19 16:45 Temperature Pulse Rate Respiratory Rate 20 20 23 H Blood Pressure 183/158 H 212/197 H
[2019-05-27] MEDS: PERFLUTREN LIPID MICROSPHERES 1.5 ML VIAL DILUTED TO 10 ML TOTAL VOLUME IV PUSH (14:24)
--- NOTE | 2019-05-27 16:32 | PCCCNOTE ---
On 05/27/19, the student, [Debbie Islas ], provided care and [facility]. I have reviewed the student's documentation and agree with the findings.
--- NOTE | 2019-05-27 16:35 | PC.NURSE ---
This patient, Janki Callejas, was received from ICU 6 on 05/27/19 at 1635. Personal belongings list checked and signed. Patient/family oriented to unit policies and routines
--- NOTE | 2019-05-27 16:50 | PC.NURSE ---
This patient, Janki Callejas, was transferred to [[id number] ] on 05/27/19 at 1650. Personal belongings sent with patient. Belongings list checked and signed with receiving [ ]. Report given to [ MILLY Mancilla @ [id number]]. Appropriate documentation sent with patient.
[2019-05-27] MEDS: MORPHINE SULFATE 2 MG/ML INJ IV PUSH ×2 (16:58→23:58)
[2019-05-28] VITALS: BP 115/52; PULSE 80; RESP 16; TEMP 36.3; O2SAT 94
--- NOTE | 2019-05-28 00:04 | PC.NURSE ---
Pts son came to nurses station and asked for his mom to get her pain shot Upon entering the pts room pt and visitors were laughing and joking, and one female visitor appeared to be messing with the IV pump. RN asked pt if she was in pain and pt looked at family before answering yes that her tailbone hurt. Pt asked if she need to be repositioned, pillows moved etc the pt stated no, Im fine . IV pump was locked once RN left pts room.
[2019-05-28] MEDS: methylPREDNISolone SOD SUCC 125 MG VIAL 80 MG IV PUSH ×2 (01:00→06:13)
[2019-05-28] MEDS: SODIUM CHLORIDE 0.9% IV 1,000 ML 75 ML IV CONT (06:12)
--- NOTE | 2019-05-28 06:33 | PC.NURSE ---
Pt bed was broken. Would not turn on
[2019-05-28 06:34] VITALS: BP 120/56; PULSE 80; RESP 18; TEMP 36.2; O2SAT 95
[2019-05-28 07:53] VITALS: O2SAT 90
[2019-05-28] MEDS: APIXABAN 5 MG TABLET PO (08:56)
[2019-05-28] MEDS: levETIRAcetam 250 MG TABLET PO (08:56)
[2019-05-28] MEDS: TOLNAFTATE 1% POWDER 45 GM BTL 1 APPLIC TOPICAL (08:56)
[2019-05-28] MEDS: MEMANTINE 10 MG TABLET PO (08:56)
--- NOTE | 2019-05-28 11:03 | PM.DS ---
DS: Diagnosis Admitting Diagnosis Admitting Diagnosis: Acute respiratory failure with hypoxia Discharge Diagnosis (1) Acute respiratory failure: Qualifiers: Respiratory failure complication: hypoxia and hypercapnia Qualified Code(s): J96.01 - Acute respiratory failure with hypoxia; J96.02 - Acute respiratory failure with hypercapnia Code(s): J96.00 - Acute respiratory failure, unspecified whether with hypoxia or hypercapnia Status: Acute Assessment and Plan: 05/27/19 13:52 patient is 68-year-old female with history of chronic respiratory failure atrial fibrillation systolic dysfunction with a defibrillator patient had been weak lethargic and somnolent 2-3 days prior to coming to emergency depart, her family was not able to awaken her patient was brought to the emergency department was found to be in respiratory failure with hypercapnia her CO2 level post 130 patient was placed on BiPAP and responded well patient also has history of stage 4 chronic kidney disease, currently patient on BiPAP patient and her family have decided to consider hospice care (2) Acute on chronic kidney failure: Qualifiers: Acute renal failure type: unspecified Chronic kidney disease stage: stage 4 (severe) Qualified Code(s): N17.9 - Acute kidney failure, unspecified; N18.4 - Chronic kidney disease, stage 4 (severe) Code(s): N17.9 - Acute kidney failure, unspecified; N18.9 - Chronic kidney disease, unspecified Status: Acute Assessment and Plan: Patient seen by Dr. Bernabe plan is above (3) CHF exacerbation: Qualifiers: Heart failure type: diastolic Qualified Code(s): I50.33 - Acute on chronic diastolic (congestive) heart failure Code(s): I50.9 - Heart failure, unspecified Status: Acute Assessment and Plan: Patient with history of severe systolic dysfunction now in exacerbation (4) Elevated troponin: Code(s): R79.89 - Other specified abnormal findings of blood chemistry Status: Acute Assessment and Plan: Patient with mildly elevated tropes most likely demand ischemia secondary to acute respiratory failure and exacerbation of CHF unlikely acute coronary syndrome DS: Summary Hospital Course Reason for hospitalization: Janki Callejas is a 68 year old female who lives with her sister Christina. She has history of having atrial fibrillation, COPD, and congestive heart failure. The patient tells me that she has oxygen at home but does not wear it every day. The patient stated that she was short of breath yesterday and started use the oxygen. Today she stated she just could not catch her breath. She had decreased urine output. No difference in her leg swelling. The patient stated that she takes her medication as prescribed. She does have a poor memory a she has a history of dementia. Patient is being admitted to IMU for exacerbation of CHF. Date of service is 05/07/2019. My collaborative is Dr. linares. She was given nebulizer treatments, Solu-Medrol, Lasix, nitroglycerin. She stated she is feeling much better. Hospital Course: patient is 68-year-old female with history of chronic respiratory failure atrial fibrillation systolic dysfunction with a defibrillator patient had been weak lethargic and somnolent 2-3 days prior to coming to emergency depart, her family was not able to awaken her patient was brought to the emergency department was found to be in respiratory failure with hypercapnia her CO2 level was 130, patient was placed on BiPAP and responded well patient also has history of stage 4 chronic kidney disease, continued patient on BiPAP on and off, patient and her family have decided to consider hospice care, will discharge patient under hospice care. Status at Discharge Cognitive/behavioral status at discharge: patient is back to her baseline Functional status at discharge: bed bound Overall status at discharge: patient is back to baseline Time Spent
== END 2019-05-28 12:26 | disposition hospice, home (50) | DRG 189 ==
LOC: ANHED 19:34 → ANHICU 20:14 → ANH3MED 05-27 20:17 → ANHICU 06-01 13:05
PROVIDERS: Emergency Medicine; Nurse Practitioner; Physician Assistant; Admitting Provider Family Medicine; Emergency Provider Emergency Medicine; PCP Family Medicine; Visit Provider Family Medicine
DX: J96.21 Acute and chronic respiratory failure with hypoxia (principal); I50.33 Acute on chronic diastolic (congestive) heart failure; I13.0 Hypertensive heart and chronic kidney disease with heart failure and stage 1 through stage 4 chronic kidney disease, or unspecified chronic kidney disease; N18.4 Chronic kidney disease, stage 4 (severe); J44.1 Chronic obstructive pulmonary disease with (acute) exacerbation; I24.8 Other forms of acute ischemic heart disease; G93.40 Encephalopathy, unspecified; N17.9 Acute kidney failure, unspecified; I48.20 Chronic atrial fibrillation, unspecified; J96.22 Acute and chronic respiratory failure with hypercapnia; D63.1 Anemia in chronic kidney disease; F03.90 Unspecified dementia, unspecified severity, without behavioral disturbance, psychotic disturbance, mood disturbance, and anxiety; I87.2 Venous insufficiency (chronic) (peripheral); K21.9 Gastro-esophageal reflux disease without esophagitis; G47.30 Sleep apnea, unspecified; Z87.891 Personal history of nicotine dependence; Z90.49 Acquired absence of other specified parts of digestive tract; Z99.81 Dependence on supplemental oxygen; Z95.0 Presence of cardiac pacemaker; Z95.810 Presence of automatic (implantable) cardiac defibrillator
CPT/HCPCS: 36415; 36600; 51701; 71045; 76775; 80053; 81001; 82375; 82805; 83050; 83605; 83735; 83880; 84439; 84443; 84480; 84484; 85025; 85610; 85730; 86140; 87040; 87081; 87804; 93005; 94002; 94003; 94640; 96361; 96374; 99291; A9270; C8929; J0696; J2270; J2930; J7030; J7040; Q9957